=== PATIENT | female | born 1950 ===

== ENCOUNTER 2017-05-31 14:26 | Emergency (ER) | payer BC ==
[2017-05-31 15:06] VITALS: BP 132/75
--- NOTE | 2017-05-31 16:06 | UC ---
Ear Complaint HPI - HPI Summary HPI Summary: Late April pt developed acute URI sx, had stuffy ears, ST, and sinus congestion. Saw PCP on 05/14 and was dx with sinusitis and tx with z-anthony. Sx all improved except for ear congestion. About 3 days ago suddenly felt worse with ear heaven, PND, laryngitis, and cough. Worried about bronchitis and wonders if she needs an antibiotic. Takes 3 medications for seasonal allergies, this does not feel like typical allergies. [place] feverish yesterday. - History of Current Complaint Chief Complaint: UCRespiratory Stated Complaint: COUGH,EAR PAIN Time Seen by Provider: 05/31/17 15:36 Hx Obtained From: Patient ?: No Onset/Duration: Gradual Onset, Lasting Weeks Severity Initially: Mild Severity Currently: Moderate Aggravating Factors: Nothing Alleviating Factors: Nothing Associated Signs/Symptoms: Positive: Hearing Loss, URI Symptoms - Allergies/Home Medications Allergies/Adverse Reactions: Allergies Allergy/AdvReac Type Severity Reaction Status Date / Time No Known Allergies Allergy Verified 05/31/17 15:06 Home Medications: Home Medications Acetaminophen [Acetaminophen Extra Stren] 500 mg PO DAILY 05/31/17 [History Confirmed 05/31/17] Azelastine/Fluticasone AYO(NF [Dymista(NF)] 1 spray BOTH NARES DAILY 05/31/17 [ History Confirmed 05/31/17] Calcium Carbonate CHEW TAB* [Tums*] 500 mg PO BID 05/31/17 [History Confirmed ] Cholecalciferol [Vitamin D3] 1,000 unit PO DAILY 05/31/17 [History Confirmed ] Fluticasone NASAL * [Flonase *] 2 spray BOTH NARES DAILY 05/31/17 [History Confirmed 05/31/17] Hydrochlorothiazide TAB* [Hydrodiuril TAB*] 12.5 mg PO DAILY 05/31/17 [History Confirmed 05/31/17] Ibuprofen TAB* [Advil TAB*] 200 mg PO Q6H PRN 05/31/17 [History Confirmed ] Loratadine [Claritin 10 MG CAP] 10 mg PO DAILY 05/31/17 [History Confirmed 05/31] Multivitamins/Minerals TAB* [Theragran/minerals TAB*] 1 tab PO DAILY 05/31/17 [ History Confirmed 05/31/17] Ramipril CAP* [Altace CAP*] 2.5 mg PO DAILY 05/31/17 [History Confirmed 05/31/17 ] Vitamin E CAP* 400 unit PO DAILY 05/31/17 [History Confirmed 05/31/17] PMH/Surg Hx/FS Hx/Imm Hx - Additional Past Medical History Additional PMH: seasonal allergies Cardiovascular History: Hypertension - Surgical History Surgical History: None - Family History Known Family History: Positive: Hypertension - Social History Lives: With Family Alcohol Use: None Substance Use Type: None Smoking Status (MU): Never Smoked Tobacco Review of Systems Constitutional: Negative Skin: Negative Eyes: Negative ENT: Ear Ache, Nasal Discharge Respiratory: Cough Cardiovascular: Negative Gastrointestinal: Negative Genitourinary: Negative Motor: Negative Neurovascular: Negative Musculoskeletal: Negative Neurological: Negative Psychological: Negative All Other Systems Reviewed And Are Negative: Yes Physical Exam Triage Information Reviewed: Yes Appearance: Well-Appearing, No Pain Distress, Well-Nourished Vital Signs: Initial Vital Signs Temp 97.6 F 05/31/17 15:03 Pulse 93 05/31/17 15:03 Resp 16 05/31/17 15:03 BP 132/75 05/31/17 15:03 Pulse Ox 98 05/31/17 15:03 Vital Signs Reviewed: Yes Eye Exam: Normal, Other - PERRL Eyes: Positive: Conjunctiva Clear ENT: Positive: Normal ENT inspection, Pharynx normal, Nasal congestion, TMs normal. Negative: TM bulging, TM dull, TM red, Tonsillar swelling Dental Exam: Normal Neck exam: Normal Neck: Positive: Supple, Nontender, No Lymphadenopathy Respiratory Exam: Normal Respiratory: Positive: Chest non-tender, Lungs clear, Normal breath sounds, No respiratory distress, No accessory muscle use Cardiovascular Exam: Normal Cardiovascular: Positive: RRR, No Murmur Musculoskeletal Exam: Normal Neurological Exam: Normal Neurological: Positive: Alert Psychological Exam: Normal Skin Exam: Normal Ear Complaint Course/Dx - Differential Dx/Diagnosis Provider Diagnoses: URI, likely viral. eustachian tube dysfunction Discharge - Discharge Plan Condition: Stable Disposition: HOME Prescriptions: Benzonatate CAP* [Tessalon CAP*] 100 mg PO TID PRN #30 cap PRN Reason: Cough predniSONE TAB* [Deltasone TAB*] 50 mg PO DAILY #4 tab Patient Education Materials: Upper Respiratory Infection (ED), Serous Otitis Media (ED) Referrals: Angi Zarate MD [Primary Care Provider] - Phu Farley MD [Medical Doctor] - 1 Week Additional Instructions: If your ears are not improving with this prednisone, please follow up with Dr. Farley. Call or return if you develop increasing fever, shortness of breath, chest pain , bloody sputum, or otherwise worsen. If you have not improved at all after several days, contact your primary care physician or return here.
== END 2017-05-31 16:07 | disposition home or self-care (01) ==
LOC: UCCORT 14:26
DX: J06.9 Acute upper respiratory infection, unspecified (principal); H69.90 Unspecified Eustachian tube disorder, unspecified ear; I10 Essential (primary) hypertension
CPT/HCPCS: 99202; G0463

== ENCOUNTER 2018-03-15 10:14 | Emergency (ER) | payer BC, OTHER ==
[2018-03-15 11:28] VITALS: BP 141/77
--- NOTE | 2018-03-15 12:34 | UC ---
UC General HPI - HPI Summary HPI Summary: " I think I have a uti". pt noted blood in her urine 2 weeks ago. she self tx with cranberry juice and it resolved. this am she noted some blood again. she states same in past and c/w a uti. denies frequency, has mild urgency but now burning. + low back ache and some bladder pressure. no vaginal d/c or fever. - History of Current Complaint Chief Complaint: UCGU Stated Complaint: URINARY Time Seen by Provider: 03/15/18 12:21 Hx Obtained From: Patient Pain Intensity: 4 Aggravating: nothing Alleviating: cranberry juice Associated Signs & Symptoms: Negative: Abdominal Pain, Fever - Allergy/Home Medications Allergies/Adverse Reactions: Allergies Allergy/AdvReac Type Severity Reaction Status Date / Time No Known Allergies Allergy Verified 03/15/18 11:27 Home Medications: Home Medications Biotin 1 mg PO DAILY 03/15/18 [History Confirmed 03/15/18] PMH/Surg Hx/FS Hx/Imm Hx - Additional Past Medical History Additional PMH: uti's, chronic sinus congestion Cardiovascular History: Hypertension - Surgical History Surgical History: None - Family History Known Family History: Positive: Hypertension - Social History Occupation: Retired Lives: With Family Alcohol Use: None Substance Use Type: None Smoking Status (MU): Never Smoked Tobacco - Immunization History Vaccination Up to Date: Yes Review of Systems Constitutional: Negative Skin: Negative Eyes: Negative ENT: Negative Respiratory: Negative Cardiovascular: Negative Gastrointestinal: Negative Genitourinary: Urgency Motor: Negative Neurovascular: Negative Musculoskeletal: Negative Neurological: Negative Psychological: Negative Is Patient Immunocompromised?: No All Other Systems Reviewed And Are Negative: Yes Physical Exam Triage Information Reviewed: Yes Appearance: Well-Appearing Vital Signs: Initial Vital Signs Temp 97.6 F 03/15/18 11:19 Pulse 88 03/15/18 11:19 Resp 16 03/15/18 11:19 BP 141/77 03/15/18 11:19 Pulse Ox 100 03/15/18 11:19 Eyes: Positive: Conjunctiva Clear ENT: Positive: Normal ENT inspection Neck: Positive: Supple, Nontender, No Lymphadenopathy Respiratory: Positive: Lungs clear, Normal breath sounds Cardiovascular: Positive: RRR, No Murmur Abdomen Description: Positive: Nontender, No Organomegaly, Soft. Negative: CVA Tenderness (R), CVA Tenderness (L), Distended, Guarding Bowel Sounds: Positive: Present Musculoskeletal: Positive: ROM Intact Neurological: Positive: Alert Psychological: Positive: Age Appropriate Behavior Skin Exam: Normal Diagnostics - Laboratory Diagnostic Studies Completed/Ordered: trace leukocytes on u/a, culture pending. Course/Dx - Course Course Of Treatment: hx htn, tx. non toxic, no acute abdomen. will tx for presumptive uti with culture pending. need to f/u for recheck and call on culture results stressed. - Differential Dx - Multi-Symptom Provider Diagnoses: hematuria. urinary frequency. possible uti Discharge - Sign-Out/Discharge Documenting (check all that apply): Discharge/Admit/Transfer - Discharge Plan Condition: Stable Disposition: HOME Prescriptions: Cephalexin CAP* [Keflex CAP*] 500 mg PO TID #21 cap Patient Education Materials: Urinary Tract Infection in Women (DC), Hematuria ( ED) Referrals: Angi Zarate MD [Primary Care Provider] - 7 Days - Billing Disposition and Condition Condition: STABLE Disposition: HOME
== END 2018-03-15 12:41 | disposition home or self-care (01) ==
LOC: UCCORT 10:14
DX: R31.9 Hematuria, unspecified (principal); R35.0 Frequency of micturition; I10 Essential (primary) hypertension; B95.1 Streptococcus, group B, as the cause of diseases classified elsewhere
CPT/HCPCS: 81003; 87077; 87086; 99212; G0463